=== PATIENT | female | born 1945 | race Caucasian/White ===

== ENCOUNTER → 2022-05-15 | Outpatient (CLI) | payer MEDICARE ==
--- NOTE | 2022-05-15 09:05 | US ---
EXAMINATION TYPE: US transvaginal DATE OF EXAM: 05/15/2022 COMPARISON: NONE CLINICAL HISTORY: R10.31 EPIGASTRIC PAIN. Pain partial hysterectomy. TECHNIQUE: Transvaginal (TV EXAM MEASUREMENTS: Uterus: Surgically absent cm Endometrial Stripe: Surgically absent cm 1. Uterus: Surgically absent 2. Endometrium: Surgically absent 3. Right Ovary: Obscured by overlying bowel gas 4. Left Ovary: Obscured by overlying bowel gas 5. Bilateral Adnexa: wnl 6. Posterior cul-de-sac: wnl IMPRESSION: 1. Visualized pelvic ultrasound appears unremarkable.
--- NOTE | 2022-05-15 09:06 | US ---
EXAMINATION TYPE: US abdomen complete DATE OF EXAM: 05/15/2022 COMPARISON: NONE CLINICAL HISTORY: R10.31 EPIGASTRIC PAIN. Pain TECHNIQUE: Multiple sonographic images of the abdomen are obtained. FINDINGS: EXAM MEASUREMENTS: Liver Length: 11 cm Gallbladder Wall: Surgically absent CBD: .8 cm Spleen: 9.8 cm Right Kidney: 10.4 x 3.7 x 4.7 cm Left Kidney: 11.6 x 5.0 x 5.0 cm REAL ESTATE OPERATIONS MANAGER NOTES: Pancreas: Tail obscured by overlying bowel gas Liver: Increased attenuation Gallbladder: Surgically absent Evidence for sonographic Pimentel's sign: No CBD: wnl Spleen: wnl Right Kidney: No hydronephrosis or masses seen Left Kidney: No hydronephrosis or masses seen Upper IVC: wnl Abd Aorta: wnl IMPRESSION: 1. No acute abnormality abdomen ultrasound
== END | disposition home or self-care (01) ==
LOC: RADUSWWP 07:48
PROVIDERS: ATTEND Family Medicine
DX: R10.31 Right lower quadrant pain (principal)
CPT/HCPCS: 76700; 76830

== ENCOUNTER 2024-02-22 16:01 | Observation (INO) | payer MEDICARE ==
--- NOTE | 2024-02-22 16:33 | ED ---
General Adult HPI - General Chief complaint: Extremity Injury, Upper Stated complaint: L wrist injury Time Seen by Provider: 02/22/24 16:15 Source: patient, RN notes reviewed, old records reviewed Mode of arrival: wheelchair Limitations: no limitations - History of Present Illness Initial comments: This is a 78-year-old female who has a past medical history significant for osteoporosis. Patient states she pushed down on her left hand to get up from a chair and she heard a crack in her wrist. Patient states this happened 3 days ago and the pain just gets worse and worse. Patient states around the wrist it is swollen. Patient denies any elbow pain shoulder pain or any other extremity pain at this time - Related Data Home Medications Medication Instructions Recorded Confirmed Atorvastatin [Lipitor] 20 mg PO HS 05/03/14 05/03/14 Nitroglycerin Sl Tabs [Nitrostat] 0.4 mg SUBLINGUAL Q5M PRN 05/03/14 05/03/14 amLODIPine BESYLATE [Norvasc] 5 mg PO HS 05/03/14 05/03/14 atenoloL [Tenormin] 50 mg PO DAILY 05/03/14 05/03/14 Previous Rx's Medication Instructions Recorded Aspirin EC [Ecotrin] 325 mg PO DAILY #30 tablet.dr 05/04/14 Isosorbide Mononitrate ER [Imdur] 60 mg PO DAILY #30 tab.er.24h 05/04/14 Nitroglycerin Sl Tabs [Nitrostat] 0.4 mg SUBLINGUAL Q5M PRN #25 tab 05/04/14 amLODIPine [Norvasc] 5 mg PO DAILY #30 tab 05/04/14 Allergies Allergy/AdvReac Type Severity Reaction Status Date / Time Opioids - Morphine Analogues AdvReac Nausea & Verified 02/22/24 16:09 Vomiting Review of Systems ROS Statement: Those systems with pertinent positive or pertinent negative responses have been documented in the HPI. ROS Other: All systems not noted in ROS Statement are negative. Past Medical History Past Medical History: Hyperlipidemia, Hypertension, Osteoarthritis (OA) Additional Past Medical History / Comment(s): INTERMITTENT CHEST PAIN 2 YEARS History of Any Multi-Drug Resistant Organisms: None Reported Past Surgical History: Cholecystectomy, Hysterectomy, Tubal Ligation Past Anesthesia/Blood Transfusion Reactions: No Reported Reaction Past Psychological History: No Psychological Hx Reported Smoking Status: Never smoker Past Alcohol Use History: None Reported Past Drug Use History: None Reported - Past Family History Father Family Medical History: Diabetes Mellitus Mother Family Medical History: Congestive Heart Failure (CHF) General Exam - General Exam Comments Initial Comments: GENERAL Patient is well-developed and well-nourished. Patient is in mild distress. EYES Patient's pupils are equal and round. Extraocular motion is intact SKIN Unremarkable NEURO The patient is alert and oriented A&Ox3 PYSCH Patient has normal interpersonal interactions. MUSCULOSKELETAL Patient is left wrist is swollen and very tender posteriorly as is the mid hand on the left Limitations: no limitations Course Vital Signs 02/22/24 02/22/24 16:10 18:15 Temperature 99.3 F Pulse Rate 70 78 Respiratory 18 18 Rate Blood Pressure 156/64 178/70 O2 Sat by Pulse 96 96 Oximetry Procedures - Orthopedic Splinting/Casting Injury #1 Side: left Upper Extremity Injury Location: short arm Upper Extremity Immobilizer: volar splint Medical Decision Making - Medical Decision Making Was pt. sent in by a medical professional or institution (, PA, POWERHOUSE MECHANIC SUPERVISOR, urgent care, hospital, or alf...) When possible be specific @ -No Did you speak to anyone other than the patient for history (EMS, parent, family, police, friend...)? What history was obtained from this source @ -No Did you review nursing and triage notes (agree or disagree)? Why? @ -I reviewed and agree with nursing and triage notes Were old charts reviewed (outside hosp., previous admission, EMS record, old E KG, old radiological studies, urgent care reports/EKG's, alf records)? Report findings @ -No old charts were reviewed Differential Diagnosis? @ -Fractured wrist, fractured hand, infected joint, gout, this is not an all- inclusive list EKG interpreted by me (3pts min.). @ -As above X-rays interpreted by me (1pt min.). @ -X-ray of the wrist and x-ray of the hand showed no acute abnormality. CT interpreted by me (1pt min.). @ -None done U/S interpreted by me (1pt. min.). @ -None done What testing was considered but not performed or refused? (CT, X-rays, U/S, labs)? Why? @ -None What meds were considered but not given or refused? Why? @ -None Did you discuss the management of the patient with other professionals (professionals i.e. Dr., PA, POWERHOUSE MECHANIC SUPERVISOR, lab, RT, psych nurse, bilingual social worker, management accountant, teacher, navigation officer, transplant case manager)? Give summary @ -I spoke with Dr. Archer he agreed to admit the patient. Was smoking cessation discussed for >3mins.? @ -No Was critical care preformed (if so, how long)? @ -No Were there social determinants of health that impacted care today? How? (Adri elessness, low income, unemployed, alcoholism, drug addiction, transportation, low edu. Level, literacy, decrease access to med. care, half-way, rehab)? @ -No Was there de-escalation of care discussed even if they declined (Discuss DNR or withdrawal of care, Hospice)? DNR status @ -No What co-morbidities impacted this encounter? (DM, HTN, Smoking, COPD, CAD, Cancer, CVA, ARF, Chemo, Hep., AIDS, mental health diagnosis, sleep apnea, morbid obesity)? @ -None Was patient admitted / discharged? Hospital course, mention meds given and route, prescriptions, significant lab abnormalities, going to OR and other pertinent info. @ -Patient was exquisitely tender red warm and swollen at the wrist so I spli nted with a volar splint and I started the patient on antibiotics and consulted with Dr. Archer and eventually admitted to Dr. Archer. I wrote admitting orders Undiagnosed new problem with uncertain prognosis? @ -No Drug Therapy requiring intensive monitoring for toxicity (Heparin, Nitro, Insul in, Cardizem)? @ -No Were any procedures done? @ -No Diagnosis/symptom? @ -Septic joint Acute, or Chronic, or Acute on Chronic? @ -Okay Uncomplicated (without systemic symptoms) or Complicated (systemic symptoms)? @ -Complicated Side effects of treatment? @ -No Exacerbation, Progression, or Severe Exacerbation? @ -No Poses a threat to life or bodily function? How? (Chest pain, [place], [place], pneumonia, PE, COPD, DKA, ARF, appy, cholecystitis, CVA, Diverticulitis, Homicidal, Suicidal, threat to staff... and all critical care pts) @ -Yes this can lead to sepsis and endorgan dysfunction - Lab Data Result diagrams: 02/22/24 18:50 02/22/24 18:50 Lab Results 02/22/24 02/22/24 02/22/24 Range/Units 18:50 18:50 18:50 WBC 10.1 (3.8-10.6) k/uL RBC 3.36 L (3.80-5.40) m/uL Hgb 10.9 L (11.4-16.0) gm/dL Hct 32.1 L (34.0-46.0) % MCV 95.5 (80.0-100.0) fL MCH 32.3 (25.0-35.0) pg MCHC 33.8 (31.0-37.0) g/dL RDW 13.7 (11.5-15.5) % Plt Count 239 (150-450) k/uL MPV 8.2 Neutrophils % 77 % Lymphocytes % 16 % Monocytes % 4 % Eosinophils % 2 % Basophils % 1 % Neutrophils # 7.8 H (1.3-7.7) k/uL Lymphocytes # 1.6 (1.0-4.8) k/uL Monocytes # 0.4 (0-1.0) k/uL Eosinophils # 0.2 (0-0.7) k/uL Basophils # 0.1 (0-0.2) k/uL Sodium 137 (137-145) mmol/L Potassium 3.7 (3.5-5.1) mmol/L Chloride 103 (98-107) mmol/L Carbon Dioxide 30 (22-30) mmol/L Anion Gap 4 mmol/L BUN 14 (7-17) mg/dL Creatinine 0.51 L (0.52-1.04) mg/dL Est GFR (CKD-EPI)AfAm >90 (>60 ml/min/1.73 sqM) Est GFR (CKD-EPI)NonAf >90 (>60 ml/min/1.73 sqM) Glucose 108 H (74-99) mg/dL Plasma Lactic Acid Rusty 1.0 (0.7-2.0) mmol/L Uric Acid 3.0 L (3.7-7.4) mg/dL Calcium 8.4 (8.4-10.2) mg/dL Total Bilirubin 0.3 (0.2-1.3) mg/dL AST 52 H (14-36) U/L ALT 39 H (4-34) U/L Alkaline Phosphatase 103 (38-126) U/L Total Protein 5.9 L (6.3-8.2) g/dL Albumin 3.4 L (3.5-5.0) g/dL Disposition Clinical Impression: Septic joint of left wrist Disposition: ADMITTED IP TO THIS HOSP Referrals: Nonstaff,Physician [Primary Care Provider] - 1-2 days Time of Disposition: 20:01
--- NOTE | 2024-02-22 17:25 | XR ---
EXAMINATION TYPE: XR wrist complete LT DATE OF EXAM: 02/22/2024 COMPARISON: None HISTORY: Trauma left hand and wrist pain. [place] a Pop when getting up TECHNIQUE: 4 view left wrist FINDINGS: No acute fracture or dislocation evident. Mild diffuse soft tissue swelling may be present. Joint spaces are preserved. Some calcification may be at the triangular fibrocartilage region. Follow up exams can be performed 7-10 days from acute trauma for continued pain. If there is pain at the anatomic snuff box, nuclear medicine bone scan could be performed IMPRESSION: 1. No acute osseous abnormality left breast. 2. Soft tissue swelling diffusely through the rest [facility], Workstation: [id number], 02/22/2024 5:23 PM
--- NOTE | 2024-02-22 17:28 | XR ---
EXAMINATION TYPE: XR hand complete LT DATE OF EXAM: 02/22/2024 COMPARISON: Left wrist HISTORY: Pt c/o left hand and wrist pain after hearing a "pop" when getting up TECHNIQUE: 3 view left hand FINDINGS: No acute fracture or dislocation within the hand is evident. Joint spaces within the hand a ppear normal. Follow up exams can be performed 7-10 days from acute trauma for continued pain. Identified on this exam is some prominence of the scapholunate space measuring 0.3 cm. This could be within normal limits but does appear to be a change from the wrist images. Scapholunate disassociatio n is not entirely excluded. MRI can be performed as clinically indicated. IMPRESSION: 1. Left hand appears intact as visualized. 2. Scapholunate disassociation cannot be excluded although not identified on the wrist images. Consid er follow-up MRI as clinically indicated [facility], Workstation: [facility], 02/22/2024 5:26 PM
[2024-02-22] MEDS: KETOROLAC 15 MG/ML 1 ML VIAL IM STA (18:32)
[2024-02-22 19:18] LABS: Basophils # (A) 0.1 k/uL (0-0.2); Basophils % (A) 1 %; Eosinophils # (A) 0.2 k/uL (0-0.7); Eosinophils % (A) 2 %; HCT 32.1 % (34.0-46.0); HGB 10.9 gm/dL (11.4-16.0); Lymphocytes # (A) 1.6 k/uL (1.0-4.8); Lymphocytes % (A) 16 %; MCH 32.3 pg (25.0-35.0); MCHC 33.8 g/dL (31.0-37.0); MCV 95.5 fL (80.0-100.0); Mean Platelet Volume 8.2; Monocytes # (A) 0.4 k/uL (0-1.0); Monocytes % (A) 4 %; Neutrophils # (A) 7.8 k/uL (1.3-7.7); Neutrophils % (A) 77 %; Platelet Count 239 k/uL (150-450); RBC 3.36 m/uL (3.80-5.40); RDW 13.7 % (11.5-15.5); WBC 10.1 k/uL (3.8-10.6)
[2024-02-22 19:26] LABS: ALT 39 U/L (4-34); AST 52 U/L (14-36); African American GFR (CKD) >90 (>60 ml/min/1.73 sqM); Albumin 3.4 g/dL (3.5-5.0); Alkaline Phosphatase 103 U/L (38-126); Anion Gap 4 mmol/L; Blood Urea Nitrogen 14 mg/dL (7-17); Calcium 8.4 mg/dL (8.4-10.2); Carbon Dioxide 30 mmol/L (22-30); Chloride 103 mmol/L (98-107); Glucose 108 mg/dL (74-99); Non-African American GFR(CKD) >90 (>60 ml/min/1.73 sqM); Potassium 3.7 mmol/L (3.5-5.1); Sodium 137 mmol/L (137-145); Total Bilirubin 0.3 mg/dL (0.2-1.3); Total Protein 5.9 g/dL (6.3-8.2)
[2024-02-22] MEDS: SODIUM CHLORIDE 0.9% 1,000 ML IV ONE (20:34)
[2024-02-22] MEDS: KETOROLAC 15 MG/ML 1 ML VIAL IVP SCH (23:50)
[2024-02-23] MEDS ORDERED: CLOPIDOGREL 75 MG TAB PO SCH (10:00)
[2024-02-23] MEDS: LOSARTAN 25 MG TAB PO SCH (10:16)
[2024-02-23] MEDS: METOPROLOL TARTRATE 50 MG TAB PO SCH (10:16)
--- NOTE | 2024-02-23 13:38 | P.HPOR ---
History of Present Illness H&P Date: 02/23/24 This is a 78-year-old female who is admitted for left wrist pain and swelling. Patient states that 3 days ago she leaned on the left wrist and heard a crack. Patient states that she did not have any significant pain at the time, but around 3 AM yesterday morning she developed significant pain and swelling in the left wrist. Patient states that she presented to the emergency room for further evaluation. X-rays done in the emergency room were negative for any acute fracture or dislocation. Patient does state that she is able to move the left hand better than she could yesterday. Patient's past medical history significant for hypertension, hyperlipidemia and osteoarthritis. Patient denies any fever, chills, numbness, weakness or tingling. Review of Systems See HPI. Past Medical History Past Medical History: Hyperlipidemia, Hypertension, Osteoarthritis (OA) Additional Past Medical History / Comment(s): INTERMITTENT CHEST PAIN 2 YEARS, last time last night 02/21/24 History of Any Multi-Drug Resistant Organisms: None Reported Past Surgical History: Cholecystectomy, Hysterectomy, Tubal Ligation Past Anesthesia/Blood Transfusion Reactions: No Reported Reaction Past Psychological History: No Psychological Hx Reported Smoking Status: Never smoker Past Alcohol Use History: None Reported Past Drug Use History: Marijuana Additional Drug Use History / Comment(s): occ marijuana gummies - Past Family History Father Family Medical History: Diabetes Mellitus Mother Family Medical History: Congestive Heart Failure (CHF) Medications and Allergies Home Medications Medication Instructions Recorded Confirmed Type Atorvastatin [Lipitor] 40 mg PO HS 02/22/24 02/22/24 History Clopidogrel [Plavix] 75 mg PO DAILY 02/22/24 02/22/24 History Losartan [Cozaar] 25 mg PO DAILY 02/22/24 02/22/24 History Metoprolol Tartrate [Lopressor] 50 mg PO BID 02/22/24 02/22/24 History Allergies Allergy/AdvReac Type Severity Reaction Status Date / Time Opioids - Morphine Analogues AdvReac Nausea & Verified 02/22/24 20:31 Vomiting/Dizzy Physical Examination On exam patient is resting comfortably in bed in no acute distress. Patient is alert and oriented 3. Left wrist: There is mild to moderate swelling of the left wrist. There is generalized tenderness to palpation over the dorsal aspect of the left wrist. Patient has limited motion of the left wrist secondary to pain and swelling. Patient is able to fully extend the fingers of the left hand. Patient has some limitation with making a fist secondary to pain in the wrist. There is no tenderness to palpation over the palm of the left hand. Skin is intact. There is minimal erythema. There is no ecchymosis. Sensation intact. The left upper extremity is warm and well-perfused. Neurovascular status and circulatory status are intact. Head is normocephalic and atraumatic. Results An x-ray report of the left wrist dated 02/22/2024 shows: 1. No acute osseous abnormality left wrist. 2. Soft tissue swelling diffusely through the wrist. An x-ray report of the left hand dated 02/22/2024 shows: 1. Left hand appears intact as visualized. 2. Scapholunate dissociation cannot be excluded although not identified on the wrist images. Consider follow-up MRI as clinically indicated. - Labs Labs: Abnormal Lab Results - Last 24 Hours (Table) 02/22/24 02/22/24 Range/Units 18:50 18:50 RBC 3.36 L (3.80-5.40) m/uL Hgb 10.9 L (11.4-16.0) gm/dL Hct 32.1 L (34.0-46.0) % Neutrophils # 7.8 H (1.3-7.7) k/uL Creatinine 0.51 L (0.52-1.04) mg/dL Glucose 108 H (74-99) mg/dL Uric Acid 3.0 L (3.7-7.4) mg/dL AST 52 H (14-36) U/L ALT 39 H (4-34) U/L Total Protein 5.9 L (6.3-8.2) g/dL Albumin 3.4 L (3.5-5.0) g/dL H & H 02/22/24 Range/Units 18:50 Hgb 10.9 L (11.4-16.0) gm/dL Hct 32.1 L (34.0-46.0) % Result Diagrams: 02/22/24 18:50 02/22/24 18:50 Assessment and Plan (1) Left wrist pain Current Visit: Yes Status: Acute Code(s): M25.532 - PAIN IN LEFT WRIST SNOMED Code(s): 24557210 (2) Swelling of left wrist Current Visit: Yes Status: Acute Code(s): M25.432 - EFFUSION, LEFT WRIST SNOMED Code(s): 919729726 Plan: 1. Imaging is reviewed and is negative for any acute fracture or dislocation. An MRI of the left wrist is pending. 2. White blood cell count and vital signs are within normal limits. Very low suspicion for septic arthritis of the left wrist. 3. Continue Toradol and elevation for swelling. 4. Appreciate input from internal medicine. 5. Further recommendations pending MRI results.
--- NOTE | 2024-02-23 20:38 | P.CONS ---
History of Present Illness - Reason for Consult Consult date: 02/23/24 Medical Management - Chief Complaint Worsening Left Wrist Pain - History of Present Illness History of present illness; 78-year-old female past medical history significant for hyperlipidemia, hypertension, osteoarthritis presented to the emergency department and was admitted as a result of worsening left wrist pain and swelling. She stated that she pushed down on her left hand to get up from a chair and heard a crack in her wrist on 02/18 and the pain has been increasing since that time. She is currently resting comfortably in bed, states the pain is well-controlled with Toradol currently however still notes that the swelling has been increasing. Patient reports being pain free at the time of interview. Patient reports absence of fever, chills, weight loss, chest pain, palpitations, diaphoresis, dyspnea, cough, nausea, vomiting, constipation, diarrhea, abdominal pain, weakness, myalgia, dizziness, headache, and dysuria. Internal medicine was consulted for medical management. Initial lab workup revealed WBCs 10.1, Hgb 10.9, hct 32.1, MCV 95.5, PLT 239; sodium 137, potassium 3.7, BUN 14, creatinine 0.51, AST 52, ALT 39 Left wrist x-ray completed showed no acute osseous abnormality, with noted soft tissue swelling diffusely throughout the wrist Left hand x-ray completed showed that the left hand appears to be intact, however scapholunate dissociation cannot be excluded - consider left wrist MRI to further evaluate Left wrist MRI completed, however complete report from the radiologist currently pending REVIEW OF SYSTEMS: All systems reviewed, pertinent positives and negatives noted in HPI. All other symptoms are negative. PHYSICAL EXAMINATION: Vitals reviewed GENERAL: No acute distress. Well developed, well nourished. HEENT:No scleral icterus. Normocephalic, atraumatic. CARDIOVASCULAR: S1 and S2 present. No murmurs, rubs, or gallops. PULMONARY: Chest is clear to auscultation, no wheezing, rhonchi, or crackles. ABDOMEN: Soft, nontender, nondistended, normoactive bowel sounds. No palpable organomegaly. MUSCULOSKELETAL: No apparent joint swelling and deformities. EXTREMITIES: No apparent cyanosis, clubbing, or pedal edema. Swelling noted of the left hand, excluding the digits, obscuring the metacarpophalangeal joints. With no noted erythema. With moderate tenderness to palpation with worsening tenderness noted at the base of the palm as well as the lateral aspect of the palm. She does have full range of movement in all of her digits, however she states it is somewhat more limited when her pain is not controlled with Toradol. Continues to have inability to form complete fist with the left hand. NEUROLOGICAL: The patient is alert and oriented x3, Gross neurological examination did not reveal any focal deficits. 5/5 strength bilateral UE and LE. SKIN: No apparent rashes. Assessment and plan 78-year-old female past medical history significant for hyperlipidemia, hypertension, osteoarthritis presented to the emergency department and was admitted as a result of worsening left wrist pain and swelling. She stated that she pushed down on her left hand to get up from a chair and heard a crack in her wrist on 02/18 and the pain has been increasing since that time. She has been accepted by internal medicine for medical management. Chronic Medical Conditions #Hypertension - Resume patient's home medications, losartan 25 mg daily, metoprolol 50 mg twice daily - Monitor patient vital signs #Hyperlipidemia - Continue patient's medication Lipitor 40 mg nightly #Mild, asymptomatic transaminitis possibly secondary to Lipitor use - Patient's total bilirubin normal at 0.3, indicating less likely true hepatic injury - AST 52, ALT 39 - Monitor CMP # Plavix use Defer holding and resumption of plavix to primary surgery service #Left wrist pain/swelling - X-ray of left hand and wrist negative for any acute fracture or dislocation - Per orthopedic team very low suspicion for septic arthritis, WBCs, vital signs are within normal limits - Monitor CBC in the AM for any noted increase in WBCs - MRI of the left wrist completed, pending official report from radiology - Defer management including pain control, antibiotics, and DVT prophylaxis to primary surgery service - MRI L wrist pending F: None currently E: Replete as needed N: Regular Diet Patient is stable from medical stand point Follow up CBC and CMP in AM Dictation was produced using [employer] software. Please excuse any grammatical, word or spelling errors. Past Medical History Past Medical History: Hyperlipidemia, Hypertension, Osteoarthritis (OA) Additional Past Medical History / Comment(s): INTERMITTENT CHEST PAIN 2 YEARS, last time last night 02/21/24 History of Any Multi-Drug Resistant Organisms: None Reported Past Surgical History: Cholecystectomy, Hysterectomy, Tubal Ligation Past Anesthesia/Blood Transfusion Reactions: No Reported Reaction Past Psychological History: No Psychological Hx Reported Smoking Status: Never smoker Past Alcohol Use History: None Reported Past Drug Use History: Marijuana Additional Drug Use History / Comment(s): occ marijuana gummies - Past Family History Father Family Medical History: Diabetes Mellitus Mother Family Medical History: Congestive Heart Failure (CHF) Medications and Allergies Home Medications Medication Instructions Recorded Confirmed Type Atorvastatin [Lipitor] 40 mg PO HS 02/22/24 02/22/24 History Clopidogrel [Plavix] 75 mg PO DAILY 02/22/24 02/22/24 History Losartan [Cozaar] 25 mg PO DAILY 02/22/24 02/22/24 History Metoprolol Tartrate [Lopressor] 50 mg PO BID 02/22/24 02/22/24 History Allergies Allergy/AdvReac Type Severity Reaction Status Date / Time Opioids - Morphine Analogues AdvReac Nausea & Verified 02/22/24 20:31 Vomiting/Dizzy Physical Exam Vitals: Vital Signs Temp Pulse Pulse Resp BP BP Pulse Ox 02/23/24 14:34 97.8 F 65 14 166/68 98 02/23/24 07:00 97.6 F 60 14 192/78 99 02/23/24 02:00 98.2 F 62 18 165/71 98 02/22/24 22:04 98.3 F 68 17 161/74 98 02/22/24 20:20 72 18 165/72 97 Intake and Output 02/23/24 02/23/24 02/23/24 06:59 14:59 22:59 Intake Total 236 118 Balance 236 118 Intake: Oral 236 118 Other: # Voids 1 1 Results CBC & Chem 7: 02/22/24 18:50 02/22/24 18:50
[2024-02-23] MEDS: ATORVASTATIN 40 MG TAB PO SCH (21:06)
[2024-02-24 07:15] VITALS: BP 195/78; PULSE 58; RESP 15; TEMP 98
[2024-02-24 08:32] LABS: Basophils # (A) 0.04 X 10*3/uL (0.00-0.10); Basophils % (A) 0.5 %; Eosinophils # (A) 0.11 X 10*3/uL (0.04-0.35); Eosinophils % (A) 1.5 %; HCT 29.9 % (37.2-46.3); HGB 10.1 g/dL (12.0-15.0); Lymphocytes # (A) 1.91 X 10*3/uL (0.90-5.00); Lymphocytes % (A) 26.2 %; MCH 31.7 pg (27.0-32.0); MCHC 33.8 g/dL (32.0-37.0); MCV 93.7 FL (80.0-97.0); Mean Platelet Volume 10.8 FL (9.5-12.2); Monocytes # (A) 0.55 X 10*3/uL (0.20-1.00); Monocytes % (A) 7.6 %; NRBC Per 100 WBC 0 X 10*3/uL (0.00-0.01); Neutrophils # (A) 4.62 X 10*3/uL (1.80-7.70); Neutrophils % (A) 63.5 %; Platelet Count 227 X 10*3/uL (140-440); RBC 3.19 X 10*6/uL (4.10-5.20); RDW 13.5 % (11.5-14.5); WBC 7.28 X 10*3/uL (4.50-10.00)
[2024-02-24 09:15] LABS: ALT 139 U/L (8-44); AST 88 U/L (13-35); Albumin 3.6 g/dL (3.8-4.9); Alkaline Phosphatase 142 U/L (41-126); BUN/Creat Ratio 24.75 Ratio (12.00-20.00); Blood Urea Nitrogen 9.9 mg/dL (9.0-27.0); Calcium 8.6 mg/dL (8.7-10.3); Chloride 106 mmol/L (96-109); Glucose 95 mg/dL (70-110); Sodium 142 mmol/L (135-145); Total Bilirubin 0.3 mg/dL (0.3-1.2); Total Protein 5.6 g/dL (6.2-8.2)
--- NOTE | 2024-02-24 11:03 | XR ---
EXAMINATION TYPE: XR elbow complete LT DATE OF EXAM: 02/24/2024 10:43 AM COMPARISON: None. CLINICAL INDICATION: Female, 78 years old with history of pain, TECHNIQUE: XR elbow complete LT view(s) obtained. FINDINGS: Radius aligns normally at the humerus. Anterior fat pad is normal. No elevation of posterior fat pad is evident which is normal. No acute fractures or dislocations evident. Follow up exams can be performed 7-10 days from acute trauma for continued pain. IMPRESSION: 1. No acute osseous abnormality left elbow [facility], , 02/24/2024 11:01 AM
--- NOTE | 2024-02-24 11:20 | P.PN ---
Subjective Progress Note Date: 02/24/24 Subjective: Patient seen and examined at bedside. No acute events overnight. She claims that the swelling in the wrist has markedly improved. Pertinent positives and negatives as discussed above, a complete review of systems was performed and all other systems are negative. Vitals Signs Reviewed. General: Nontoxic, no distress, appears at stated age Derm: Warm, dry Head: Atraumatic, normocephalic, symmetric Eyes: EOMI, no lid lag, anicteric sclera Mouth: No lip lesion, mucus membranes moist Cardiovascular: S1S2 reg, no murmur Lungs: CTA bilateral, no rhonchi, no rales, no accessory muscle use Abdominal: Soft, nontender to palpation, no guarding, no appreciable organomegaly Ext: No gross muscle atrophy, no edema, no contractures, left wrist forearm and elbow tender to palpation, slight edema, no significant erythema, restricted range of motion due to pain, no signs of synovitis. Neuro: CN II-XI grossly intact, no focal neuro deficits Psych: Alert, oriented, appropriate affect Data Reviewed Today: Pertinent Labs: WBC 7.28, hemoglobin 10.1, total bili 0.3, AST 88, ALT 139, ALP 142, creatinine 0.4 Imaging: Elbow x-ray did not show any osseous abnormality Assessment and Plan: Active: Left wrist/forearm edema and pain -Normal white count, pain and edema started after overextension of wrist -Very low suspicion of septic arthritis, antibiotics discontinued -Currently on 50 mg IV Toradol every 6 hours -Orthopedic surgery following, MRI wrist pending Hypertension -Uncontrolled, likely in the setting of pain -Continue losartan 25 daily, metoprolol 50 twice daily -Outpatient follow-up Transaminitis Dyslipidemia -Okay to continue atorvastatin 40 nightly -Right upper quadrant pain Normocytic anemia -No active bleeding -Unclear why patient is on Plavix, currently on hold by primary surgery service -If it continues to worsen, will get reticulocyte count, iron studies, B12 and folic acid levels. Patient is medically optimized for discharge if no acute surgical interventions planned. She will need follow-up with PCP and repeat CMP outpatient if she is discharged today. Thank you for allowing us to participate in the care of this pleasant patient. Do not hesitate to contact us with questions. Someone can be reached from the [facility] hospitalist group all hours of the day at [phone] or via perfect serve. Objective - Vital Signs Vital signs: Vital Signs Temp 98.0 F 02/24/24 07:00 Pulse 58 L 02/24/24 07:00 Resp 15 02/24/24 07:00 BP 195/78 02/24/24 07:00 Pulse Ox 100 02/24/24 07:00 FiO2 Intake & Output 02/23/24 02/24/24 02/24/24 18:59 06:59 18:59 Intake Total 354 0 Balance 354 0 Intake: Oral 354 0 Other: # Voids 1 - Labs CBC & Chem 7: 02/24/24 05:06 02/24/24 05:06 Labs: Abnormal Lab Results - Last 24 Hours (Table) 02/24/24 02/24/24 Range/Units 05:06 05:06 RBC 3.19 L (4.10-5.20) X 10*6/uL Hgb 10.1 L (12.0-15.0) g/dL Hct 29.9 L (37.2-46.3) % Immature Gran # 0.05 H (0.00-0.04) X 10*3/uL Creatinine 0.4 L (0.6-1.5) mg/dL BUN/Creatinine Ratio 24.75 H (12.00-20.00) Ratio Calcium 8.6 L (8.7-10.3) mg/dL AST 88 H (13-35) U/L ALT 139 H (8-44) U/L Alkaline Phosphatase 142 H (41-126) U/L Total Protein 5.6 L (6.2-8.2) g/dL Albumin 3.6 L (3.8-4.9) g/dL
--- NOTE | 2024-02-24 13:24 | P.PN ---
Subjective Progress Note Date: 02/24/24 This is a 78-year-old female who was admitted for left wrist pain and swelling. Patient is seen and at bedside today. Patient reports improvement in swelling and states that she has been working on her range of motion. Patient states that she had an x-ray of her left elbow done due to concurrent left elbow pain that started the same day as her wrist pain. Patient states that she leaned on her left elbow and that is when she heard a crack in her wrist. Patient states that her left elbow pain has been steadily improving. Patient states that she was recently admitted to [place] for her blood pressure and was possibly put on Plavix during that admission. Patient is unsure why she is on Plavix. Patient denies any fever or chills. Patient denies any known history of gout. Objective - Vital Signs Vital signs: Vital Signs Temp 98.0 F 02/24/24 07:00 Pulse 58 L 02/24/24 07:00 Resp 15 02/24/24 07:00 BP 195/78 02/24/24 07:00 Pulse Ox 100 02/24/24 07:00 FiO2 Intake & Output 02/23/24 02/24/24 02/24/24 18:59 06:59 18:59 Intake Total 354 0 Balance 354 0 Intake: Oral 354 0 Other: # Voids 1 - Exam On exam patient is alert and oriented x 3. Patient is in no acute distress and lying comfortably in bed. Left upper extremity: There is no swelling of the left elbow. Patient has good active and passive motion of the left elbow. Swelling in the wrist is improving. There is very faint erythema. The left wrist is tender to palpatio n. Active motion of the left wrist and hand are improving. Sensation intact. The left upper extremity is warm well-perfused. Neurovascular status and circulatory status are intact. - Labs CBC & Chem 7: 02/24/24 05:06 02/24/24 05:06 Labs: Abnormal Lab Results - Last 24 Hours (Table) 02/24/24 02/24/24 Range/Units 05:06 05:06 RBC 3.19 L (4.10-5.20) X 10*6/uL Hgb 10.1 L (12.0-15.0) g/dL Hct 29.9 L (37.2-46.3) % Immature Gran # 0.05 H (0.00-0.04) X 10*3/uL Creatinine 0.4 L (0.6-1.5) mg/dL BUN/Creatinine Ratio 24.75 H (12.00-20.00) Ratio Calcium 8.6 L (8.7-10.3) mg/dL AST 88 H (13-35) U/L ALT 139 H (8-44) U/L Alkaline Phosphatase 142 H (41-126) U/L Total Protein 5.6 L (6.2-8.2) g/dL Albumin 3.6 L (3.8-4.9) g/dL Assessment and Plan (1) Left wrist pain Current Visit: Yes Status: Acute Code(s): M25.532 - PAIN IN LEFT WRIST SNOMED Code(s): 89824101 (2) Swelling of left wrist Current Visit: Yes Status: Acute Code(s): M25.432 - EFFUSION, LEFT WRIST SNOMED Code(s): 583857610 Plan: 1. Imaging is reviewed and found to be negative for any acute fracture or dislocation. An MRI of the left wrist has been done, but there is no report yet. A x-ray report of the left elbow shows: 1. No acute osseous abnormality left elbow 2. White blood cell count and vital signs are within normal limits. Very low suspicion for septic arthritis of the left wrist. 3. Patient's symptoms are improving. Discussed possibility for gout as the ca use of her swelling. There is no plans for surgical intervention. Patient will be discharged home today on prednisone. Patient is to continue icing and elevating for swelling. Recommend follow-up with [facility] next week if her symptoms have not fully improved.
--- NOTE | 2024-02-24 13:29 | P.DS ---
Providers Date of admission: 02/22/24 20:11 Expected date of discharge: 02/24/24 Attending physician: Stephane Archer Consults: 02/23/24 09:51 Consult Physician Routine Consulting Provider: Anjelica Menjivar Consult Reason/Comments: medical management Do you want consulting provider notified?: Yes Primary care physician: Physician Nonstaff - Discharge Diagnosis(es) (1) Left wrist pain Current Visit: Yes Status: Acute (2) Swelling of left wrist Current Visit: Yes Status: Acute Hospital Course: This is a 78-year-old female who is admitted for left wrist pain and swelling. Patient has showed continued improvement in symptoms. MRI is reviewed, but report is pending. White blood cell count and vital signs have remained within normal limits. Internal medicine has also evaluated the patient during this admission. On day of discharge swelling has improved. Range of motion improving. Sensation intact. Left upper extremity is warm and well perfused. Neurovascular status and circulatory status are intact. Initial history: This is a 78-year-old female who is admitted for left wrist pain and swelling. Patient states that 3 days ago she leaned on the left wrist and heard a crack. Patient states that she did not have any significant pain at the time, but around 3 AM yesterday morning she developed significant pain and swelling in the left wrist. Patient states that she presented to the emergency room for further evaluation. X-rays done in the emergency room were negative for any acute fracture or dislocation. Patient does state that she is able to move the left hand better than she could yesterday. Patient's past medical history significant for hypertension, hyperlipidemia and osteoarthritis. Patient denies any fever, chills, numbness, weakness or tingling. Plan - Discharge Summary Discharge Rx Participant: No New Discharge Prescriptions: New predniSONE 10 mg PO DIRECTED #24 tab No Action Clopidogrel [Plavix] 75 mg PO DAILY Atorvastatin [Lipitor] 40 mg PO HS Metoprolol Tartrate [Lopressor] 50 mg PO BID Losartan [Cozaar] 25 mg PO DAILY Discharge Medication List Atorvastatin [Lipitor] 40 mg PO HS 02/22/24 [History] Clopidogrel [Plavix] 75 mg PO DAILY 02/22/24 [History] Losartan [Cozaar] 25 mg PO DAILY 02/22/24 [History] Metoprolol Tartrate [Lopressor] 50 mg PO BID 02/22/24 [History] predniSONE 10 mg PO DIRECTED #24 tab 02/24/24 [Rx] Follow up Appointment(s)/Referral(s): Lukasz Castillo MD [STAFF PHYSICIAN] - 1 Week Nonstaff,Physician [Primary Care Provider] - 1-2 days Activity/Diet/Wound Care/Special Instructions: Ice and elevate as needed for swelling. Please take medication as prescribed. Please follow up with [facility] and call with any questions or concerns, . Discharge Disposition: HOME SELF-CARE
--- NOTE | 2024-03-05 16:26 | MR ---
EXAMINATION TYPE: MR left wrist without contrast DATE OF EXAM: 02/23/2024 COMPARISON: Radiographs 02/22/2024 HISTORY: Scapholunate dislocation, septic joint Standard multiplanar, multisequence MRI departmental protocol Multiplanar, multisequence images of the left wrist were acquired without contrast. FINDINGS: Perforation of the central TFCC disc. Dorsal and radial extensor carpi ulnaris tendon sheath are inta ct. Mild degenerative signal involving the scapholunate ligament which is otherwise intact. Intact trique tral ligament. Mild second extensor compartment tenosynovitis. Extensor tendons are otherwise intact. Intact flexor tendons. Small subcortical cysts in the lunate and triquetrum. Low-level edema within the lunate also noted. N egative for fracture or malalignment. Mild scattered radiocarpal, intercarpal, triscaphe and first CMC joint osteoarthritis. Moderate dista l radial ulnar, radiocarpal and intercarpal joint effusions. Mild diffuse intramuscular and subcutaneous edema about collection. Small small ganglia along the vol ar radial styloid and along the pisotriquetral joint. IMPRESSION: 1. Distal radioulnar, radiocarpal and intercarpal joint effusions. 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 Correlate clinically and consider joint aspiration. 2. Low-level edema within the lunate without evidence of fracture. Small subcortical cysts/erosions i n the triquetrum and lunate. 3. Perforation of the central TFCC disc. 4. Nonspecific mild diffuse subcutaneous and muscular edema. [facility], Workstation: [id number], 03/05/2024 4:23 PM
== END 2024-02-24 14:57 | disposition home or self-care (01) ==
LOC: EC 16:01 → 6NMEDSUR 20:11
PROVIDERS: ADMIT Orthopaedic Surgery; ATTEND Orthopaedic Surgery
DX: M25.532 Pain in left wrist (principal); M25.432 Effusion, left wrist; M81.0 Age-related osteoporosis without current pathological fracture; I10 Essential (primary) hypertension; E78.5 Hyperlipidemia, unspecified; M19.90 Unspecified osteoarthritis, unspecified site; D64.9 Anemia, unspecified; Z79.899 Other long term (current) drug therapy; Z79.02 Long term (current) use of antithrombotics/antiplatelets; Z79.82 Long term (current) use of aspirin
CPT/HCPCS: 96376 ×2; 96361; 96366 ×2; 96375; 96365; 96372; 99284; 36415; 80053 ×2; 83605; 84550; 85025 ×2; 73080; 73110; 73130; 73221; G0378 ×3; J0696 ×2; J1885 ×3

== ENCOUNTER 2024-07-07 07:49 | Emergency (ER) | payer MEDICARE ==
[2024-07-07 08:03] VITALS: BP 191/81; PULSE 66; RESP 18; TEMP 97.5
--- NOTE | 2024-07-07 08:14 | ED ---
Abdominal Pain HPI - General Chief Complaint: Abdominal Pain Stated Complaint: Left flank pain Time Seen by Provider: 07/07/24 08:04 Source: patient, RN notes reviewed Mode of arrival: ambulatory Limitations: no limitations - History of Present Illness Initial Comments: This is a 79-year-old female with a history of hypertension, hyperlipidemia, and angina presenting to the emergency room with daughter for complaint of left upper quadrant abdominal pain over the past 3 days. Patient states that is relatively constant however intensifes described as a stabbing sensation that is worse in the middle of the night. She denies associated heart palpitations, dizziness, lightheadedness, nausea, vomiting, diarrhea, constipation. She denies dysuria, hematuria or increased urinary frequency or urgency. denies hematochezia or melena. Last bowel movement this morning. previous cholecytectomy. - Related Data Home Medications Medication Instructions Recorded Confirmed Atorvastatin [Lipitor] 40 mg PO HS 02/22/24 02/22/24 Clopidogrel [Plavix] 75 mg PO DAILY 02/22/24 02/22/24 Losartan [Cozaar] 25 mg PO DAILY 02/22/24 02/22/24 Metoprolol Tartrate [Lopressor] 50 mg PO BID 02/22/24 02/22/24 Previous Rx's Medication Instructions Recorded predniSONE 10 mg PO DIRECTED #24 tab 02/24/24 Ketorolac [Toradol] 10 mg PO Q8HR #15 tab 07/07/24 Meloxicam, Submicronized 5 mg PO DAILY PRN #7 cap 07/07/24 [Meloxicam] Allergies Allergy/AdvReac Type Severity Reaction Status Date / Time Opioids - Morphine Analogues AdvReac Nausea & Verified 07/07/24 08:02 Vomiting/Dizzy Review of Systems ROS Statement: Those systems with pertinent positive or pertinent negative responses have been documented in the HPI. ROS Other: All systems not noted in ROS Statement are negative. Past Medical History Past Medical History: Hyperlipidemia, Hypertension, Osteoarthritis (OA) Additional Past Medical History / Comment(s): INTERMITTENT CHEST PAIN 2 YEARS, last time last night 02/21/24 History of Any Multi-Drug Resistant Organisms: None Reported Past Surgical History: Cholecystectomy, Hysterectomy, Tubal Ligation Past Anesthesia/Blood Transfusion Reactions: No Reported Reaction Past Psychological History: No Psychological Hx Reported Smoking Status: Never smoker Past Alcohol Use History: None Reported Past Drug Use History: Marijuana - Past Family History Father Family Medical History: Diabetes Mellitus Mother Family Medical History: Congestive Heart Failure (CHF) General Exam Limitations: no limitations General appearance: alert, in no apparent distress ENT exam: Present: normal exam, mucous membranes moist Neck exam: Present: normal inspection. Absent: tenderness, meningismus, lymphadenopathy Respiratory exam: Present: normal lung sounds bilaterally. Absent: respiratory distress, wheezes, rales, rhonchi, stridor Cardiovascular Exam: Present: regular rate, normal rhythm, normal heart sounds. Absent: systolic murmur, diastolic murmur, rubs, gallop, clicks GI/Abdominal exam: Present: soft, tenderness (LUQ), normal bowel sounds. A bsent: distended, guarding, rebound, rigid Extremities exam: Present: normal inspection, full ROM, normal capillary refill. Absent: tenderness, pedal edema, joint swelling, calf tenderness Back exam: Present: normal inspection Course Vital Signs 07/07/24 08:00 Temperature 97.5 F L Pulse Rate 66 Respiratory 18 Rate Blood Pressure 191/81 O2 Sat by Pulse 96 Oximetry Medical Decision Making - Medical Decision Making Was pt. sent in by a medical professional or institution (, PA, CALL WORKER PERSON, urgent care, hospital, or care home...) When possible be specific @ -No Did you speak to anyone other than the patient for history (EMS, parent, family, police, friend...)? What history was obtained from this source @ -No Did you review nursing and triage notes (agree or disagree)? Why? @ -I reviewed and agree with nursing and triage notes Were old charts reviewed (outside hosp., previous admission, EMS record, old EKG, old radiological studies, urgent care reports/EKG's, care home records)? Report findings @ -No old charts were reviewed Differential Diagnosis (chest pain, altered mental status, abdominal pain women, abdominal pain men, vaginal bleeding, weakness, fever, dyspnea, syncope, headache, dizziness, GI bleed, back pain, seizure, CVA, palpatations, mental health, musculoskeletal)? @ -Differential Abdominal Pain Women: Appendicitis, Cholecystitis, diverticulosis, ischemic bowel, pancreatitis, hepatitis, UTI, gastroenteritis, AAA, incarcerated hernia, bowel obstruction, constipation, inflammatory bowel, hepatitis, peptic ulcer disease, splenic infarction, perforated viscus, vulvitis, ovarian torsion, PID, kidney stone, placenta abruption, this is not meant to be an all-inclusive list EKG interpreted by me (3pts min.). @ -Completed at 905 sinus rhythm with a ventricular rate of 64, IN interval 167, QRS 85, QTc 405 X-rays interpreted by me (1pt min.). @ -None done CT interpreted by me (1pt min.). @ -CT of the abdomen pelvis with IV contrast no evidence for acute intra- abdominal or intrapelvic process U/S interpreted by me (1pt. min.). @ -None done What testing was considered but not performed or refused? (CT, X-rays, U/S, labs)? Why? @ -None What meds were considered but not given or refused? Why? @ -None Did you discuss the management of the patient with other professionals (professionals i.e. , PA, CALL WORKER PERSON, lab, RT, psych nurse, social media strategist, wire harness assembler, teacher, asset protection officer, casework specialist)? Give summary @ -No Was smoking cessation discussed for >3mins.? @ -No Was critical care preformed (if so, how long)? @ -No Were there social determinants of health that impacted care today? How? (Homelessness, low income, unemployed, alcoholism, drug addiction, transportation, low edu. Level, literacy, decrease access to med. care, [facility], rehab)? @ -No Was there de-escalation of care discussed even if they declined (Discuss DNR or withdrawal of care, Hospice)? DNR status @ -No What co-morbidities impacted this encounter? (DM, HTN, Smoking, COPD, CAD, Cancer, CVA, ARF, Chemo, Hep., AIDS, mental health diagnosis, sleep apnea, morbid obesity)? @ -None Was patient admitted / discharged? Hospital course, mention meds given and route, prescriptions, significant lab abnormalities, going to OR and other pertinent info. @ -Discharge. 79-year-old female presenting for left upper quadrant Carter pain. Patient's pain is reproducible on exam. Vitals are stable on arrival. [facility]. EKG sinus rhythm. Laboratory test including CBC, CMP, troponin, urinalysis unremarkable. CT of the abdomen pelvis no acute process. Recommend patient follow-up with primary care provider in the next 1 to 3 days for further evaluation unspecified abdominal pain. Case discussed with Dr. Worthy Undiagnosed new problem with uncertain prognosis? @ -No Drug Therapy requiring intensive monitoring for toxicity (Heparin, Nitro, Insulin, Cardizem)? @ -No Were any procedures done? @ -No Diagnosis/symptom? @ -Unspecified abdominal pain Acute, or Chronic, or Acute on Chronic? @ -Acute Uncomplicated (without systemic symptoms) or Complicated (systemic symptoms)? @ -Uncomplicated Side effects of treatment? @ -No Exacerbation, Progression, or Severe Exacerbation? @ -No Poses a threat to life or bodily function? How? (Chest pain, USA, VT, pneumonia, PE, COPD, DKA, ARF, appy, cholecystitis, CVA, Diverticulitis, Homicidal, Suicidal, threat to staff... and all critical care pts) @ -No - Lab Data Result diagrams: 07/07/24 08:14 07/07/24 08:14 Lab Results 07/07/24 07/07/24 07/07/24 Range/Units 08:14 08:14 08:14 WBC 7.7 (3.8-10.6) k/uL RBC 4.44 (3.80-5.40) m/uL Hgb 13.8 (11.4-16.0) gm/dL Hct 41.9 (34.0-46.0) % MCV 94.3 (80.0-100.0) fL MCH 31.0 (25.0-35.0) pg MCHC 32.9 (31.0-37.0) g/dL RDW 13.8 (11.5-15.5) % Plt Count 244 (150-450) k/uL MPV 7.9 Neutrophils % 71 % Lymphocytes % 21 % Monocytes % 6 % Eosinophils % 1 % Basophils % 0 % Neutrophils # 5.4 (1.3-7.7) k/uL Lymphocytes # 1.6 (1.0-4.8) k/uL Monocytes # 0.5 (0-1.0) k/uL Eosinophils # 0.1 (0-0.7) k/uL Basophils # 0.0 (0-0.2) k/uL Sodium 139 (137-145) mmol/L Potassium 4.1 (3.5-5.1) mmol/L Chloride 103 (98-107) mmol/L Carbon Dioxide 27 (22-30) mmol/L Anion Gap 9 mmol/L BUN 14 (7-17) mg/dL Creatinine 0.38 L (0.52-1.04) mg/dL Est GFR (CKD-EPI)AfAm >90 (>60 ml/min/1.73 sqM) Est GFR (CKD-EPI)NonAf >90 (>60 ml/min/1.73 sqM) Glucose 107 H (74-99) mg/dL Plasma Lactic Acid Rusty 1.0 (0.7-2.0) mmol/L Calcium 9.3 (8.4-10.2) mg/dL Total Bilirubin 0.7 (0.2-1.3) mg/dL AST 23 (14-36) U/L ALT 16 (4-34) U/L Alkaline Phosphatase 131 H (38-126) U/L Troponin I (0.000-0.034) ng/mL Total Protein 7.5 (6.3-8.2) g/dL Albumin 4.7 (3.5-5.0) g/dL Amylase 82 (30-110) U/L Lipase 89 (23-300) U/L Urine Color Urine Appearance (Clear) Urine pH (5.0-8.0) Ur Specific [place] (1.001-1.035) Urine Protein (Negative) Urine Glucose (UA) (Negative) Urine Ketones (Negative) Urine Blood (Negative) Urine Nitrite (Negative) Urine Bilirubin (Negative) Urine Urobilinogen (<2.0) mg/dL Ur Leukocyte Esterase (Negative) 07/07/24 07/07/24 Range/Units 08:14 10:15 WBC (3.8-10.6) k/uL RBC (3.80-5.40) m/uL Hgb (11.4-16.0) gm/dL Hct (34.0-46.0) % MCV (80.0-100.0) fL MCH (25.0-35.0) pg MCHC (31.0-37.0) g/dL RDW (11.5-15.5) % Plt Count (150-450) k/uL MPV Neutrophils % % Lymphocytes % % Monocytes % % Eosinophils % % Basophils % % Neutrophils # (1.3-7.7) k/uL Lymphocytes # (1.0-4.8) k/uL Monocytes # (0-1.0) k/uL Eosinophils # (0-0.7) k/uL Basophils # (0-0.2) k/uL Sodium (137-145) mmol/L Potassium (3.5-5.1) mmol/L Chloride (98-107) mmol/L Carbon Dioxide (22-30) mmol/L Anion Gap mmol/L BUN (7-17) mg/dL Creatinine (0.52-1.04) mg/dL Est GFR (CKD-EPI)AfAm (>60 ml/min/1.73 sqM) Est GFR (CKD-EPI)NonAf (>60 ml/min/1.73 sqM) Glucose (74-99) mg/dL Plasma Lactic Acid Rusty (0.7-2.0) mmol/L Calcium (8.4-10.2) mg/dL Total Bilirubin (0.2-1.3) mg/dL AST (14-36) U/L ALT (4-34) U/L Alkaline Phosphatase (38-126) U/L Troponin I <0.012 (0.000-0.034) ng/mL Total Protein (6.3-8.2) g/dL Albumin (3.5-5.0) g/dL Amylase (30-110) U/L Lipase (23-300) U/L Urine Color Light yellow Urine Appearance Clear (Clear) Urine pH 7.0 (5.0-8.0) Ur Specific [place] >1.050 H (1.001-1.035) Urine Protein Negative (Negative) Urine Glucose (UA) Negative (Negative) Urine Ketones Negative (Negative) Urine Blood Negative (Negative) Urine Nitrite Negative (Negative) Urine Bilirubin Negative (Negative) Urine Urobilinogen <2.0 (<2.0) mg/dL Ur Leukocyte Esterase Negative (Negative) Disposition Clinical Impression: Upper abdominal pain, unspecified Disposition: HOME SELF-CARE Condition: Good Instructions (If sedation given, give patient instructions): Abdominal Pain (ED) Additional Instructions: Please return to the Emergency Department if symptoms worsen or any other concerns. Prescriptions: Meloxicam, Submicronized [Meloxicam] 5 mg PO DAILY PRN #7 cap PRN Reason: Pain Ketorolac [Toradol] 10 mg PO Q8HR #15 tab Is patient prescribed a controlled substance at d/c from ED?: No Referrals: Nonstaff,Physician [Primary Care Provider] - 1-2 days Time of Disposition: 11:29
[2024-07-07 09:26] LABS: Basophils % (A) 0 %; Eosinophils # (A) 0.1 k/uL (0-0.7); Eosinophils % (A) 1 %; HCT 41.9 % (34.0-46.0); HGB 13.8 gm/dL (11.4-16.0); Lymphocytes # (A) 1.6 k/uL (1.0-4.8); Lymphocytes % (A) 21 %; MCHC 32.9 g/dL (31.0-37.0); MCV 94.3 fL (80.0-100.0); Mean Platelet Volume 7.9; Monocytes # (A) 0.5 k/uL (0-1.0); Monocytes % (A) 6 %; Neutrophils # (A) 5.4 k/uL (1.3-7.7); Neutrophils % (A) 71 %; Platelet Count 244 k/uL (150-450); RBC 4.44 m/uL (3.80-5.40); RDW 13.8 % (11.5-15.5); WBC 7.7 k/uL (3.8-10.6)
[2024-07-07 09:33] LABS: ALT 16 U/L (4-34); AST 23 U/L (14-36); African American GFR (CKD) >90 (>60 ml/min/1.73 sqM); Albumin 4.7 g/dL (3.5-5.0); Alkaline Phosphatase 131 U/L (38-126); Amylase 82 U/L (30-110); Anion Gap 9 mmol/L; Blood Urea Nitrogen 14 mg/dL (7-17); Calcium 9.3 mg/dL (8.4-10.2); Carbon Dioxide 27 mmol/L (22-30); Chloride 103 mmol/L (98-107); Glucose 107 mg/dL (74-99); Lipase 89 U/L (23-300); Non-African American GFR(CKD) >90 (>60 ml/min/1.73 sqM); Potassium 4.1 mmol/L (3.5-5.1); Sodium 139 mmol/L (137-145); Total Bilirubin 0.7 mg/dL (0.2-1.3); Total Protein 7.5 g/dL (6.3-8.2)
[2024-07-07] MEDS: KETOROLAC 15 MG/ML 1 ML VIAL IVP STA (10:09)
--- NOTE | 2024-07-07 10:23 | CT ---
EXAMINATION TYPE: CT abdomen pelvis w con DATE OF EXAM: 07/07/2024 10:02 AM COMPARISON: None. CLINICAL INDICATION: Female, 79 years old with history of LUQ ab pain, LUQ abdominal pain TECHNIQUE:CT scan of the abdomen and pelvis is performed without Oral Contrast and with IV Contrast, patient injected with 100ml mL of Isovue 300. CT DLP: 731.9 mGycm, Automated exposure control for dose reduction was used. FINDINGS: LUNG BASES-: No visible nodule. No infiltrate. LIVER/GB: The gallbladder is surgically absent. No space occupying hepatic lesion. Biliary tree is of normal caliber. PANCREAS: No inflammation. No distinct mass. SPLEEN: No splenic enlargement. No lesion seen. ADRENALS: No nodule. No thickening. KIDNEYS/BLADDER: No hydronephrosis. No nephrolithiasis. No distinct renal mass. Urinary bladder g rossly unremarkable. BOWEL: Normal appendix. Normal bowel caliber. No inflammation. Poor distention of the colon limits evaluation. GENITAL ORGANS: Hysterectomy changes. No evidence for adnexal mass. LYMPH NODES: No greater than 1cm abdominal or pelvic lymph nodes are appreciated. AORTA: No significant abnormality. OSSEOUS STRUCTURES: No significant abnormality is seen. OTHER: No significant additional abnormality is seen. IMPRESSION: 1. No acute intra-abdominal or intrapelvic process appreciated at this time. [facility], , 07/07/2024 10:20 AM
[2024-07-07 10:51] LABS: Appearance,Urine Clear (Clear); Bilirubin,Urine Negative (Negative); Blood,Urine Negative (Negative); Glucose,Urine (UA) Negative (Negative); Ketones,Urine Negative (Negative); Leukocyte Esterase,Urine Negative (Negative); Nitrite,Urine Negative (Negative); Protein,Urine Negative (Negative); Urobilinogen,Urine <2.0 mg/dL (<2.0)
[2024-07-07 11:20] LABS: Color,Urine Light yellow; Specific Gravity,Urine >1.050 (1.001-1.035)
== END 2024-07-07 11:47 | disposition home or self-care (01) ==
LOC: EC 07:49
DX: R10.32 Left lower quadrant pain (principal); I10 Essential (primary) hypertension; E78.5 Hyperlipidemia, unspecified; Z88.5 Allergy status to narcotic agent
CPT/HCPCS: 36415; 93005; 80053; 82150; 83605; 83690; 84484; 85025; 81003; 74177; 99284; 96374; J1885; Q9967